=== PATIENT | male | born 1950 | race Caucasian/White ===

== ENCOUNTER 2019-05-12 10:46 | Day surgery (SDC) | payer MEDICARE ==
[2019-05-11 14:31] VITALS: BMI 31.7
[2019-05-12] MEDS ORDERED: Ondansetron PF 4 MG/2 ML Vial ONE (12:23)
[2019-05-12] MEDS ORDERED: Lidocaine 1% PF 5 ML VIAL ONE (12:23)
[2019-05-12] MEDS ORDERED: PHENYLEPHRINE-NS 100 MCG/ML 10 ML SYRINGE ONE (12:23)
[2019-05-12] MEDS ORDERED: ePHEDrine 50 MG/ML VIAL ONE (12:23)
[2019-05-12] MEDS ORDERED: PROPOFOL 200 MG/20 ML VIAL ONE (12:23)
[2019-05-12 13:02] LABS: Hemoglobin 14.8 g/dL (14.0-18.0)
[2019-05-12 13:22] LABS: Anion Gap 11 mmol/L (10-20); BUN (Urea Nitrogen) 15 mg/dL (8.4-25.7); Calc. Creatinine Clearance 132 mL/min (70-130); Calcium 9.5 mg/dL (7.8-10.44); Carbon Dioxide 29 mmol/L (23-31); Chloride 105 mmol/L (98-107); Estimated GFR-MDRD Greater than 90; Glucose 116 mg/dL (80-115); Potassium 3.7 mmol/L (3.5-5.1); Sodium 141 mmol/L (136-145)
[2019-05-12] MEDS ORDERED: Fentanyl 100 MCG/2 ML VIAL ONE (13:33)
--- NOTE | 2019-05-13 11:34 | OP ---
DATE OF PROCEDURE: 05/12/2019 PREOPERATIVE DIAGNOSIS: Severe rhinophyma. POSTOPERATIVE DIAGNOSIS: Severe rhinophyma. PROCEDURE PERFORMED: CO2 laser destruction of severe rhinophyma. DESCRIPTION OF PROCEDURE: After consent was obtained, the patient identified and brought to the operating room, and placed on the operating room table in the supine position. Laryngeal mask anesthesia was obtained. The patient was positioned for surgery. His nose was prepped and draped in sterile fashion and a CO2 laser was attached to a handpiece, which was used to perform systematic laser destruction of the rhinophyma. The patient's nose was systematically and meticulously treated with the CO2 laser in an effort to destroy sebaceous glands and sebaceous material. We continued artful destruction of the hypertrophic nasal tissues until the crypts were markedly diminished and sebaceous glands were destroyed. We then placed antibiotic ointment over the nasal tissue and Vaseline gauze and sterile bandage. The patient was awakened, taken to recovery room in a stable condition prior to discharge home. Job ID: [id number]
--- NOTE | 2019-05-16 23:02 | EKG ---
Test Reason : PREOP Blood Pressure : / mmHG Vent. Rate : 070 BPM Atrial Rate : 070 BPM P-R Int : 214 ms QRS Dur : 104 ms QT Int : 396 ms P-R-T Axes : 050 -37 028 degrees QTc Int : 427 ms Electronic atrial pacemaker Left axis deviation Inferior infarct , age undetermined Abnormal ECG No previous ECGs available Confirmed by JJ GUTIERREZ M.D. ([id number]) on 05/16/2019 11:02:32 PM Referred By: ROBERT Confirmed By:JJ GUTIERREZ M.D.
== END 2019-05-12 16:40 | disposition home or self-care (01) ==
LOC: SDC 10:46
PROVIDERS: ATTEND Specialist
PROC: 0H5 Skin and Breast, Destruction (ICD-10-PCS; principal; 2019-05-12)
DX: L71.1 Rhinophyma (principal); E11.9 Type 2 diabetes mellitus without complications; E78.5 Hyperlipidemia, unspecified; G47.30 Sleep apnea, unspecified; I69.354 Hemiplegia and hemiparesis following cerebral infarction affecting left non-dominant side; F17.200 Nicotine dependence, unspecified, uncomplicated; Z79.84 Long term (current) use of oral hypoglycemic drugs; Z79.899 Other long term (current) drug therapy; Z88.1 Allergy status to other antibiotic agents; Z95.1 Presence of aortocoronary bypass graft; Z95.5 Presence of coronary angioplasty implant and graft; Z99.89 Dependence on other enabling machines and devices
CPT/HCPCS: 36415; 80048; 85014; 85018; 93005; 93010; J2001; J2405; J2704; J3010; J3490